=== PATIENT | male | born 1975 | race African-American/Black ===

== ENCOUNTER 2018-07-17 17:46 | Emergency (ER) | payer MEDICARE, MEDICAID ==
[~2018-07-17] VITALS: Ht 188 cm; Wt 138.6 kg
[2018-07-17 17:49] VITALS: Ht 188 cm; Wt 138.6 kg
[2018-07-17] MEDS ORDERED: EC-NAPROSYN500 MG PO (18:50)
[2018-07-17] MEDS ORDERED: CYCLOBENZAPRINE10 MG PO (18:50)
[2018-07-17] MEDS ORDERED: MEDROL DOSE PACK4 MG PO (18:50)
[2018-07-17 19:36] VITALS: BP 150/90
== END 2018-07-17 19:25 | disposition home or self-care (01) ==
LOC: D.ER 17:46
DX: S39.012A Strain of muscle, fascia and tendon of lower back, initial encounter (principal); X50.0XXA Overexertion from strenuous movement or load, initial encounter; Y93.89 Activity, other specified; Y92.019 Unspecified place in single-family (private) house as the place of occurrence of the external cause; M54.30 Sciatica, unspecified side